=== PATIENT | female | born 1985 | race Two or more races ===

== ENCOUNTER 2024-10-01 23:12 | Emergency (ER) | payer MEDICAID, SELFPAY ==
[2024-10-01 23:14] VITALS: BMI 28.9
[2024-10-02] VITALS (8 sets, daily range): BP systolic 119–151; BP diastolic 79–99; PULSE 83–108; RESP 16–20; TEMP 36.8–37.4; O2SAT 96–100
--- NOTE | 2024-10-02 00:36 | XR_ITS ---
Examination: CT soft tissue neck, with intravenous contrast. 2-D coronal reconstructions. 2-D sagittal reconstructions. Date and time of exam :October 02, 2024, 0329 hours INDICATIONS: Left-sided jaw pain and swelling difficulty swallowing 3 days. CTDI: vol (mGy):10.8 DLP: (mGycm):274 Technique: 1.25 mm axial sections of the neck of the obtained. Coronal and sagittal reconstructions have been obtained. Intravenous contrast administered 60 cc Isovue 370. Low dose protocols were performed. One or more of the following dose reduction techniques were used; automated exposure control, adjustment of the mA and/or KV according to patient size, use of iterative reconstruction technique. Findings: Significant sphenoid sinusitis Enlarged left tonsil with early left tonsillar abscess 13 x 15 mm, swelling encroaching upon the oropharyngeal airway Left molar dental caries with cortical bone destruction at the angle of the mandible on the left Normal epiglottis IMPRESSION: Left tonsillar abscess encroaching upon the oropharyngeal airway Left molar mandibular dental caries with osteomyelitis involving the angle of the left mandible
--- NOTE | 2024-10-02 00:37 | EDRME_ITS ---
Rapid Medical Screening Exam [facility] Arrival date/time: 10/01/24 23:12 38F with history of dental surgery last month presents to ED with several days of throat pain/swelling and yesterday, patient possible has food bolus stuck in throat. Chief Complaint: Dental/Oral/Throat Vital signs: Vital Signs Temperature 99 F 10/02/24 00:26 Pulse Rate 102 H 10/02/24 00:26 Respiratory Rate 19 10/02/24 00:26 Blood Pressure 151/88 H 10/02/24 00:26 Pulse Oximetry (%) 100 10/02/24 00:26 Oxygen Delivery Method Room Air 10/02/24 00:26
[2024-10-02 01:20] LABS: Lactate (Lactic Acid) 0.9 mMol/L (0.4-2.0)
[2024-10-02 01:22] LABS: Basophils # (Auto) 0.1 Thou/mm3 (0.0-0.2); Basophils % (Auto) 1 % (0-2.5); Eosinophils # (Auto) 0.1 Thou/mm3 (0.0-0.5); Eosinophils % (Auto) 0 % (0-10); Hematocrit 37.4 % (36.0-46.0); Hemoglobin 13.1 g/dL (12.0-16.0); Immature Granulocytes % (Auto) 0 % (0-0); Immature Granulocytes Auto 0.04 Thou/mm3 (0.00-0.00); Lymphocytes # (Auto) 1.4 Thou/mm3 (1.0-4.8); Lymphocytes % (Auto) 10 % (10-50); Mean Corpuscular Hemoglobin 27.6 pg (25.0-35.0); Mean Corpuscular Volume 79 fL (80-100); Monocytes # (Auto) 1.1 Thou/mm3 (0.0-0.8); Monocytes % (Auto) 8 % (0-12); Neutrophils # (Auto) 11.2 Thou/mm3 (1.8-7.7); Neutrophils % (Auto) 80 % (37-80); Nucleated Red Blood Cell % 0 /100 WBC (0); Platelet Count 292 Thou/mm3 (140-440); RDW Standard Deviation 39.6 fL (36.4-46.3); Red Blood Count 4.75 Miln/mm3 (4.00-5.20); White Blood Count 13.9 Thou/mm3 (3.6-11.0)
[2024-10-02 01:46] LABS: Alanine Aminotransferase 13 U/L (10-49); Albumin, Serum 4.6 gm/dL (3.5-5.0); Albumin/Globulin Ratio 1.4 (1.2-2.2); Alkaline Phosphatase 64 U/L (46-116); Anion Gap 9 (7-16); Aspartate Amino Transferase 16 U/L (0-34); BUN/Creatinine Ratio 13 Ratio (12-20); Bilirubin,Total 0.7 mg/dL (0.3-1.2); Blood Urea Nitrogen 8 mg/dL (9-23); Calcium 9.1 mg/dL (8.3-10.6); Calcium (Corrected) 9.1 mg/dL (8.5-10.1); Carbon Dioxide 25.5 mMol/L (20.0-31.0); Chloride 104 mMol/L (98-107); Creatinine (Component) 0.6 mg/dL (0.6-1.3); Estimated Creatinine Clearance 113.3 mL/min (>60); Globulin 3.2 gm/dL (2.3-3.5); Glucose 100 mg/dL (74-106); Osmolality,Calculated 273 (275-295); Potassium 3.9 mMol/L (3.4-5.1); Procalcitonin < 0.04 ng/ml (0.0-0.49); Sodium 138 mMol/L (136-145); Total Protein 7.8 gm/dL (5.7-8.2); eGFR > 60 See Note
[2024-10-02 01:47] LABS: HCG,Qualitative Serum Negative
--- NOTE | 2024-10-02 04:20 | PC.NURSE ---
pt c/o pain and swelling of throat since last night she had her left wisdom tooth 4 days ago. She stated that she had hamburger soup and feels that the food is stuck in her throat.
[2024-10-02] MEDS: KETOROLAC INJ 30 MG/ML VIAL IVP (04:22)
[2024-10-02] MEDS: GLUCAGON INJ 1 MG VIAL IVP (04:22)
--- NOTE | 2024-10-02 04:47 | EDNOTE_ITS ---
ED Dental RME/HPI General Chief complaint: Dental/Oral/Throat Stated complaint: Food stuck in throat Time Seen by Provider: 10/02/24 04:32 Arrival date/time: 10/01/24 23:12 RME / HPI RME / HPI Narrative: 10/01/24 23:12 38F with history of dental surgery last month presents to ED with several days of throat pain/swelling and yesterday, patient possible has food bolus stuck in throat. ------ Dr. Olivas?s Main ED Evaluation: 38yo female presents to the ED for a chief complaint of throat pain and swelling. Patient states she had her left lower wisdom tooth pulled out 4 days ago, reporting she started having left facial swelling that night. She states tonight after eating ground beef and soup, she felt like she got food stuck in her throat, reporting she has significant throat pain, so she came in for evaluation. She states it hurts to swallow. She denies any fever, chills or any other associated symptoms. No known allergies. Related Data Allergies Allergy/AdvReac Type Severity Reaction Status Date / Time NKA* Uncoded 09/25/09 12:06 Review of Systems Review of Systems Systems Reviewed: All systems reviewed, normal except as documented Past Medical History Past Medical History CARDIAC: Negative Cardiac Disorders RESPIRATORY: Negative Asthma GENITOURINARY: Negative Renal Disease ENDOCRINE: Negative Diabetes Mellitus Type 2 HEMATOLOGIC: Negative Sickle Cell Disease Social History SMOKING STATUS: Never smoker ED Exam Narrative Physical exam: GENERAL APPEARANCE: alert and oriented x 4, well-developed, well-nourished, no acute distress VITALS: All vitals were reviewed and the pulse ox is 100% on room air, which is normal according to my interpretation. HEENT: Normocephalic, atraumatic; pupils equal, round, reactive to light; EOMI; mucous membranes pink, moist; trismus; L>R submandibular swelling; sublingual swelling, muffled voice; foreign body sensation in throat NECK: Supple LUNGS: CTABL; no wheezes, no rales, no rhonchi; no stridor; no respiratory distress HEART: Regular rate, regular rhythm; normal S1, S2; no murmurs ABDOMEN: non distended; normal BS; soft, no tenderness, no guarding, no rebound; no masses, no organomegaly, no hernia BACK: no CVA tenderness EXTREMITIES: atraumatic; no edema NEUROLOGIC: awake; alert and oriented x4; cranial nerves II-XII grossly intact; no focal sensory or motor deficits PSYCHIATRIC: appropriate mood and affect SKIN: warm, dry, normal color; no rashes Course Course Course Narrative: CXR is ordered to r/o foreign body. Quality Measures none Orders Category Date Time Status Blood glucose [Bedside Blood Glucose] NOW Care 10/02/24 00:[address] Screening NOW Care 10/02/24 00:37 Active Insert IV NOW Care 10/02/24 00:[address] soft tissue neck w con Stat Exams 10/02/24 00:36 Taken XR chest 1V portable Stat Exams 10/02/24 04:51 Taken XR soft tissue neck Stat Exams 10/02/24 04:53 Taken CBC Stat Lab 10/02/24 01:11 Completed CMP [Comprehensive Metabolic Panel] Stat Lab 10/02/24 01:11 Completed HCG,Qualitative Serum Stat Lab 10/02/24 01:11 Completed Lactate (Lactic Acid) Stat Lab 10/02/24 01:11 Completed Procalcitonin Stat Lab 10/02/24 01:11 Completed Clindamycin 900Mg Ivpb [Cleocin/D5w Ivpb] 50 ml Med 10/02/24 04:56 Discontinued IV X1 Dexamethasone Inj [Decadron Inj] Med 10/02/24 05:15 Discontinued 10 mg IVP X1 ONE Glucagon Inj Med 10/02/24 00:36 Discontinued 1 mg IVP X1 ONE Insulin Regular Med 10/02/24 05:10 Discontinued 10 unit IV X1 ONE Ketorolac Inj [Toradol Inj] Med 10/02/24 00:38 Discontinued 30 mg IVP X1 ONE Sodium Chloride 0.9% 1000 ml [Ns] 1,000 ml Med 10/02/24 05:07 Active IV 999 mls/hr Vital Signs Vital signs: Vital Signs Temperature 99 F 10/02/24 00:26 Pulse Rate 102 H 10/02/24 00:26 Respiratory Rate 19 10/02/24 00:26 Blood Pressure 151/88 H 10/02/24 00:26 Pulse Oximetry (%) 100 10/02/24 00:26 Oxygen Delivery Method Room Air 10/02/24 00:26 Dental / Oral MDM Narrative MDM Narrative:: Scribe Attestation: 10/02/24 - I, Ya Alexandru, am scribing for and in the presence of Dr. Olivas. I was not made aware this patient was placed in a room. I saw the patient at 0440. CT soft tissue neck was performed at 0330. Pending to be read. 0501: [facility] does not have ENT services available. 0504: Spoke with [facility]'s transfer center. Awaiting callback at this time. 0551: [facility] was awaiting paperwork to be faxed over to them. Still awaiting callback at this time. Patient data External records reviewed:: [facility] previous records (Per chart review, patient has no previous ED visits or admissions to this facility.) Clinical information provided by:: patient Social determinants that could affect healthcare access:: none Patient has the following chronic illnesses:: none How is presenting disease/condition affected by chronic disease/condition?: no chronic disease Evaluation data The following diagnostics were reviewed and interpreted by me:: lab results and radiology exam(s) Lab and/or radiology exams considered but not ordered:: none Interpretation Summary: WBC count is elevated at 13.9, CMP is normal, Lactic Acid is normal, Procalcitonin is normal, HCG is negative, according to my interpretation. --------- CT scan of the neck with intravenous contrast (axial sections with sagittal and coronal reformats) October 02, 2024 at 0329 hours Clinical History: Food stuck in the throat dental surgery done last month pain and swelling. Comparison: None. Findings: Enlarged heterogenous appearance of the left palatine tonsil. The nasopharynx, hypopharynx, supraglottic and infraglottic larynx, vocal cords and upper trachea are unremarkable. The epiglottis and aryepiglottic folds appear unremarkable. No collection is identified. The vessels of the neck are well opacified. No filling defect is seen. The superficial soft tissues of the neck are unremarkable. Mild lytic changes at the level of the most posterior removed left mandibular molar tooth alveolar process, this is associated with peripheral inflammatory changes. No food bolus detected in the imaged portion of the esophagus. Impression: 1. No food bolus detected in the imaged portion of the esophagus. 2. Enlarged inflamed left palatine tonsil. 3. Mild lytic changes at the level of the most posterior removed left mandibular molar tooth alveolar process associated with peripheral inflammatory changes. This is suspicious for osteomyelitis. Consider correlation with MRI to assess for small abscesses. This report has been electronically signed by: Mack Nelson MD. Medications / Prescriptions Medications or Prescriptions considered but not ordered:: none Medication administrations:: Medication Administration History Discontinued Medications Dexamethasone Sodium Phosphate (Dexamethasone Sod Phos Inj 10 Mg/Ml Vial) 10 mg IVP X1 ONE; Protocol Stop: 10/02/24 05:16 Last Admin: 10/02/24 05:24 Dose: 10 mg Documented By: HUMZA Glucagon (Glucagon Inj 1 Mg Vial) 1 mg IVP X1 ONE Stop: 10/02/24 00:37 Last Admin: 10/02/24 04:22 Dose: 1 mg Documented By: HUMZA Clindamycin Phosphate (Cleocin/D5w Ivpb) 50 mls @ 100 mls/hr IV X1 ONE Stop: 10/02/24 05:25 Last Admin: 10/02/24 05:24 Dose: 100 mls/hr Documented By: HUMZA Sodium Chloride (Ns) 1,000 mls @ 999 mls/hr IV .Q1H1M ONE Stop: 10/02/24 06:07 Last Admin: 10/02/24 05:22 Dose: 999 mls/hr Documented By: HUMZA Insulin Human Regular (Insulin Hum Regular 1 Unit/0.01 Ml (Per Unit)) 10 unit IV X1 ONE Stop: 10/02/24 05:11 Last Admin: 10/02/24 05:27 Dose: Not Given Documented By: CVL Non-Admin Reason: Cancelled by Provider Ketorolac Tromethamine (Ketorolac Inj 30 Mg/Ml Vial) 30 mg IVP X1 ONE Stop: 10/02/24 00:39 Last Admin: 10/02/24 04:22 Dose: 30 mg Documented By: HUMZA see above Consultations Consultation(s) initiated? (list below): Yes Diagnosis Dental Differential Diagnosis: other (jason's angina, deep pharyngeal space infection, trismus, airway compromise, sepsis) Most likely diagnosis given after review of the tests above:: see clinical impression below Admission Indicated Admission indicated?: not indicated Explain why admission is indicated or not indicated:: Patient requires a higher [id number]. Admission Request Was there a request for admission?: No Disposition Plan Disposition Plan: other (specify) (Signed out to Dr. Marshall at 0600 pending transfer.) Critical Care Time Critical Care Time Critical Care Time: Yes Total Critical Care Time (min.): 90 Attestation: The high probability of sudden, clinically significant deterioration in the patient?s condition required the highest level of my preparedness to intervene urgently. The services I provided to this patient were to treat and/or prevent clinically significant deterioration. Services included the following: chart data review, reviewing nursing notes and/or old charts, documentation time, media consultant outside sales collaboration regarding findings and treatment options, medication orders and management, direct patient care, vital sign assessments and ordering, interpreting and reviewing diagnostic studies and lab tests. Aggregate critical care time includes only time during which I was engaged in work directly related to the patient?s care, as described above, whether at bedside or elsewhere in the Emergency Department. It did not include time spent performing other reported procedures or the services of residents, students, nurses or physician assistants. Discharge Plan Prescriptions/Referrals Referrals: No Primary/Family,Physician [Primary Care Provider] - In 1 week Problem List Clinical Impression: Jason angina, Osteomyelitis, Airway compromise, Trismus Patient/Caregiver Discharge Instructions Print Language: Kittitian
--- NOTE | 2024-10-02 04:51 | XR_ITS ---
Examination: AP chest single view TECHNIQUE: AP portable upright chest single view Exam date and time: October 02, 2024 at 0458 hours INDICATIONS: Chest pain today FINDINGS: Normal heart size. Lungs are clear. The osseous structures are intact IMPRESSION: No active disease
--- NOTE | 2024-10-02 04:53 | XR_ITS ---
Examination: AP lateral soft tissue neck 2 views TECHNIQUE: Portable AP lateral soft tissue neck 2 views INDICATIONS: Tonsil mass today sore throat and pain in the tonsillar region FINDINGS: Normal epiglottis No prevertebral soft tissue prominence IMPRESSION: Recommend CT soft tissue neck follow-up to assess for tonsillar enlargement
[2024-10-02] MEDS: SODIUM CHLORIDE 0.9% 1000 ML 1,000 ML 999 ML IV (05:22)
[2024-10-02] MEDS: CLINDAMYCIN 900MG IVPB 50 ML 100 MG IV (05:24)
[2024-10-02] MEDS: DEXAMETHASONE SOD PHOS INJ 10 MG/ML VIAL IVP (05:24)
--- NOTE | 2024-10-02 06:05 | EDNOTE_ITS ---
Emergency Room Addendum Addendum Narrative: 0600: Care assumed from Dr. Olivas, the previous shift emergency physician. Past medical, surgical, social and family history reviewed. Vitals and home medications reviewed. I will assume the care of the patient at this time, pending transfer. Please refer to the emergency department record for history and examination from initial visit.? Physical exam by me shows patient under no acute distress at this time. 0637: Discussed test HPI, PMHx, lab, radiology results and/or management with Dr. Cornejo from [facility]. Dr. Cornejo is requesting images of patient?s neck. 0824: Consulted and made a plan with Dr. oCrnejo, we reviewed the CT images together and do not feel she has an abscess or other definitive surgical interventions needed. States that this and the appearance is normal and seeing quite frequently up to a week after a complex wisdom tooth extraction. Re commends a second dose of Decadron 10 mg six hours from her first dose. Any media dose of unison 3 g, and if after one to two hours after the last dose of Decadron, she is not worsening. She should be appropriate to discharge with Augmentin and to follow up with her dentist. The patient states her dental appointment is on the eighth, in three days. 1255: Patient is now feeling better and she can open her mouth better after steroids' treatment. We informed the patient about the consultation with Dr. Cornejo, see above. Re-assessment at the time of disposition demonstrates that the patient is in no acute distress. We reviewed all the results, analysis, and treatment plans. Patient is amenable to discharge. Strict return precautions were outlined. Patient was discharged in stable condition. Diagnosis: - Status post wisdom tooth extraction CRITICAL CARE: TIME: 35 minutes. The high probability of sudden, clinically significant deterioration in the patient?s condition required the highest level of my preparedness to intervene urgently. The services I provided to this patient were to treat and/or prevent clinically significant deterioration. Services included the following: chart data review, reviewing nursing notes and/or old charts, documentation time, sales enablement consultant collaboration regarding findings and treatment options, medication orders and management, direct patient care, vital sign assessments and ordering, interpreting and reviewing diagnostic studies and lab tests. Aggregate critical care time includes only time during which I was engaged in work directly related to the patient?s care, as described above, whether at bedside or elsewhere in the Emergency Department. It did not include time spent performing other reported procedures or the services of residents, students, nurses or physician assistants.
--- NOTE | 2024-10-02 07:18 | PC.NURSE ---
Report received from pm nurse, patient lying in gurney quietly, no distress noted, patient to er with c/o feeling like food is stuck in her throat. Currenlty patient speaking full sentences, denies pain, skin is warm dry and pink, patient awaiting re evaluation by Dr. Marshall ths am, patient has no other needs at this time, call light is within reach.
--- NOTE | 2024-10-02 08:13 | PC.NURSE ---
Called pharmacy to bring unasyn to the er, not in our pyxis.
[2024-10-02] MEDS: AMPICILLIN/SULBAC INJ 3 GM in SODIUM CHLORIDE 0.9% (Popper) 50 ML IV (08:32)
--- NOTE | 2024-10-02 10:29 | PC.NURSE ---
Patient lying in gurney, no distress noted. Will give medications per MD order at 11am. Patient updated on plan of care. Patient has no other needs at this time; call light within reach.
[2024-10-02] MEDS: DEXAMETHASONE SOD PHOS INJ 10 MG/ML VIAL IV (11:26)
== END 2024-10-02 13:07 | disposition home or self-care (01) ==
PROVIDERS: Physician Assistant; Emergency Provider Emergency Medicine
DX: K12.2 Cellulitis and abscess of mouth (principal); M27.2 Inflammatory conditions of jaws; R25.2 Cramp and spasm; J35.1 Hypertrophy of tonsils
CPT/HCPCS: 36415; 70360; 70491; 71045; 80053; 83605; 84145; 84703; 85025; 96365; 96367; 96375; 96376; 99285; A4649; J0295; J1100; J1610; J1885; J7030; J7050; Q9967; S0077; J0736

== ENCOUNTER 2024-12-26 09:37 | Emergency (ER) | payer MEDICAID, SELFPAY ==
[2024-12-26 10:32] VITALS: BP 120/82; PULSE 101; RESP 18; TEMP 38.2; O2SAT 98; BMI 34.9
--- NOTE | 2024-12-26 10:33 | XR_ITS ---
Examination: CT soft tissue neck, with intravenous contrast. 2-D coronal reconstructions. 2-D sagittal reconstructions. Date and time of exam :December 26, 2024, 12:58 PM Indications: Sore throat fever 3 days. CTDI: vol (mGy):14.2 DLP: (mGycm):Pain in 81 Technique: 1.25 mm axial sections of the neck of the obtained. Coronal and sagittal reconstructions have been obtained. Intravenous contrast administered 60 cc Isovue-370. Low dose protocols were performed. One or more of the following dose reduction techniques were used; automated exposure control, adjustment of the mA and/or KV according to patient size, use of iterative reconstruction technique. Findings: Prominent bilateral soft tissue tonsillar enlargement No discrete fluid-filled abscess is Encroachment upon the oropharyngeal airway Imaging of the epiglottis No prevertebral soft tissue is significant prominence Satisfactory alignment cervical vertebral bodies Impression: Significant bilateral tonsillar inflammation hypertrophy without well-defined abscesses
[2024-12-26 11:15] LABS: Basophils % (Auto) 0 % (0-2.5); Eosinophils % (Auto) 0 % (0-10); Hematocrit 35.1 % (36.0-46.0); Hemoglobin 11.9 g/dL (12.0-16.0); Immature Granulocytes % (Auto) 0 % (0-0); Immature Granulocytes Auto 0.01 Thou/mm3 (0.00-0.00); Lymphocytes # (Auto) 1.1 Thou/mm3 (1.0-4.8); Lymphocytes % (Auto) 12 % (10-50); Mean Corpuscular HGB Conc 33.9 g/dl (31.0-37.0); Mean Corpuscular Volume 80 fL (80-100); Monocytes # (Auto) 0.8 Thou/mm3 (0.0-0.8); Monocytes % (Auto) 9 % (0-12); Neutrophils # (Auto) 6.9 Thou/mm3 (1.8-7.7); Neutrophils % (Auto) 78 % (37-80); Nucleated Red Blood Cell % 0 /100 WBC (0); Platelet Count 197 Thou/mm3 (140-440); RDW Standard Deviation 37.2 fL (36.4-46.3); Red Blood Count 4.41 Miln/mm3 (4.00-5.20); White Blood Count 8.9 Thou/mm3 (3.6-11.0)
[2024-12-26 11:25] VITALS: TEMP 38.2
[2024-12-26] MEDS: ACETAMINOPHEN 500 MG TABLET 1000 MG PO (11:25)
[2024-12-26 11:29] LABS: Alanine Aminotransferase 16 U/L (10-49); Albumin, Serum 4.2 gm/dL (3.5-5.0); Albumin/Globulin Ratio 1.4 (1.2-2.2); Alkaline Phosphatase 53 U/L (46-116); Anion Gap 7 (7-16); Aspartate Amino Transferase 20 U/L (0-34); BUN/Creatinine Ratio 12 Ratio (12-20); Bilirubin,Total 0.4 mg/dL (0.3-1.2); Blood Urea Nitrogen 7 mg/dL (9-23); Calcium 8.7 mg/dL (8.3-10.6); Calcium (Corrected) 8.7 mg/dL (8.5-10.1); Carbon Dioxide 25.5 mMol/L (20.0-31.0); Chloride 107 mMol/L (98-107); Creatinine (Component) 0.6 mg/dL (0.6-1.3); Estimated Creatinine Clearance 123.8 mL/min (>60); Globulin 2.9 gm/dL (2.3-3.5); Glucose 98 mg/dL (74-106); Osmolality,Calculated 275 (275-295); Potassium 3.4 mMol/L (3.4-5.1); Sodium 139 mMol/L (136-145); Total Protein 7.1 gm/dL (5.7-8.2); eGFR > 60 See Note
--- NOTE | 2024-12-26 12:06 | PD.EDURI ---
Upper Respiratory Inf. RME/HPI General Chief Complaint: Flu Like Symptoms Stated Complaint: SORETHROAT, FEVER X 3D Time Seen by Provider: 12/26/24 09:41 Arrival date/time: 12/26/24 09:37 This is a case of 39-year-old female who came into the emergency room due to sore throat for 3 days associated with fever patient denies any cough nasal congestion ear pain denies any drooling of saliva denies any hoarseness of voice denies any pain when swallowing denies shortness of breath Limitations: no limitations Related Data Previous Rx's ?Medication ?Instructions ?Recorded amoxicillin 875 mg-potassium 1 tab PO Q12H #14 tabs 10/02/24 clavulanate 125 mg tablet clindamycin HCl 300 mg capsule 300 mg PO Q6H 10 days #40 caps 12/26/24 ibuprofen 800 mg tablet 800 mg PO Q8H PRN pain #20 tabs 12/26/24 lidocaine HCl 2 % mucosal solution 10 ml PO Q4HR PRN SORETHROAT #100 12/26/24 (Lidocaine Viscous) mL prednisone 20 mg tablet 20 mg PO QDAY 5 days #5 tabs 12/26/24 Allergies Allergy/AdvReac Type Severity Reaction Status Date / Time No Known Allergies Allergy Unverified 12/26/24 09:40 Review of Systems Review of Systems Systems Reviewed: All systems reviewed, normal except as documented Constitutional Constitutional: Reports system reviewed and no additional complaints, except as documented, Reports as per HPI, Denies anorexia, Denies body ache(s), Denies chills, Denies daytime sleepiness, Denies difficulty sleeping, Denies excessive sweating, Denies fatigue, Reports fever(s), Denies frequent falls, Denies headache(s), Denies increased appetite, Denies poor appetite, Denies lethargy, Denies malaise, Denies night sweats, Denies snoring, Denies stops breathing during sleep, Denies weakness, Denies weight gain and Denies weight loss ENT Ears, Nose, Mouth, and Throat: Reports system reviewed and no additional complaints, except as documented, Reports as per HPI, Denies dizziness, Denies dry mouth, Denies dysphagia, Denies ear discharge, Denies otalgia, Denies epistaxis, Denies facial pain, Denies headache(s), Denies hearing loss, Denies hoarseness, Denies lip swelling, Denies mouth lesions, Denies mouth pain, Denies nasal congestion, Denies nasal discharge, Denies nasal obstruction, Denies neck mass, Denies nose pain, Denies odynophagia, Denies post nasal drip, Denies sinus pain, Denies sinus pressure, Reports sore throat, Denies throat swelling, Denies tinnitus, Denies tongue swelling and Denies vertigo Respiratory Respiratory: Reports system reviewed and no additional complaints, except as documented, Reports as per HPI and Denies snoring Gastrointestinal Gastrointestinal: Reports system reviewed and no additional complaints, except as documented, Reports as per HPI, Denies dysphagia and Denies odynophagia Musculoskeletal Musculoskeletal: Reports system reviewed and no additional complaints, except as documented and Reports as per HPI Neurologic Neurologic: Reports system reviewed and no additional complaints, except as documented, Reports as per HPI, Denies dizziness, Denies frequent falls, Denies headache(s), Denies vertigo and Denies weakness Endocrine Endocrine: Denies excessive sweating and Denies fatigue Allergic/Immunologic Allergic/Immunologic: Denies lip swelling, Denies throat swelling and Denies tongue swelling Past Medical History Past Medical History CARDIAC: Negative Cardiac Disorders or Congestive Heart Failure RESPIRATORY: Negative Chronic Obstructive Pulmonary Disease (COPD) or Asthma GENITOURINARY: Negative Renal Disease ENDOCRINE: Negative Diabetes Mellitus Type 1 or Diabetes Mellitus Type 2 HEMATOLOGIC: Negative Sickle Cell Disease Social History SMOKING STATUS: Never smoker ED Exam General Limitations: Present no limitations General appearance: Present alert and in no apparent distress; Absent appears intoxicated or anxious Head Head exam: Present atraumatic, normocephalic and normal inspection Eye Eye exam: Present normal appearance, PERRL and EOMI ENT ENT exam: Present normal exam, normal oropharynx, mucous membranes moist, mucous membranes dry and TM's normal bilaterally Expanded ENT Exam Mouth exam: Present normal external inspection; Absent drooling, trismus, lip swelling, tongue normal, tongue elevation, tongue swelling or laceration Throat exam: Present tonsillar erythema, tonsillomegaly, tonsillar exudate and other (Noted moderate swelling and redness of the both tonsils RED with exudate uvula midline no swelling no redness no lesion no drooling of saliva patient is able to swallow with no pain no neck mass no muffled voice no hot potato voice); Absent R peritonsillar mass, L peritonsillar mass or muffled voice Neck Neck exam: Present normal inspection, full ROM and trachea midline; Absent tenderness, meningismus, lymphadenopathy or thyromegaly Chest Chest inspection: Present normal inspection and symmetric chest wall rise Respiratory Respiratory exam: Present normal lung sounds bilaterally; Absent respiratory distress, wheezes, stridor, accessory muscle use or prolonged expiratory phase Cardiovascular Cardiovascular exam: Present regular rate, normal rhythm and normal heart sounds; Absent bradycardia, tachycardia, irregular rhythm or systolic murmur Abdominal Exam Abdominal exam: Present soft and normal bowel sounds Extremities Exam Extremities exam: Present normal inspection and full ROM Back Exam Back exam: Present normal inspection and full ROM Neurological Exam Neurological exam: Present alert, oriented X3, CN II-XII intact, normal gait and reflexes normal; Absent motor sensory deficit Psychiatric Psychiatric exam: Present normal affect and normal mood Skin Skin exam: Present warm, dry, intact and normal color Course Quality Measures none Orders Category Date Time Status CT Screening NOW Care 12/26/24 10:[address] soft tissue neck w con Stat Exams 12/26/24 10:33 Completed CBC Stat Lab 12/26/24 11:01 Completed CMP [Comprehensive Metabolic Panel] Stat Lab 12/26/24 11:01 Completed Strep A Rapid Stat Lab 12/26/24 10:33 Ordered Acetaminophen Tab [Tylenol ES Tab] Med 12/26/24 10:35 Discontinued 1,000 mg PO X1 ONE Dexamethasone Inj [Decadron Inj] 10 mg Med 12/26/24 15:19 Discontinued Sodium Chloride 0.9% [Ns] 100 ml IV X1 cefTRIAXone/D5w 1gm IV premix [Rocephin/D5w 1gm IV Med 12/26/24 15:19 Active premix] 1 gm in 50 ml IV X1 Vital Signs Vital signs: Vital Signs Temperature 100.7 F H 12/26/24 10:32 Pulse Rate 101 H 12/26/24 10:32 Respiratory Rate 18 12/26/24 10:32 Blood Pressure 120/82 12/26/24 10:32 Pulse Oximetry (%) 98 12/26/24 10:32 Oxygen Delivery Method Room Air 12/26/24 10:32 Patient is febrile at 100.7 patient was given Tylenol fever was rechecked and noted to be 99.5 not tachycardic not tachypneic BP stable not hypoxic oxygen saturation is 98% in room air Upper Respiratory Infection MDM Narrative MDM Narrative:: This is a case of 39-year-old female who came into the emergency room due to sore throat for 3 days associated with fever patient denies any cough nasal congestion ear pain denies any drooling of saliva denies any hoarseness of voice denies any pain when swallowing denies shortness of breath patient is awake alert oriented not in distress nontoxic looking patient is afebrile not tachycardic not tachypneic not hypoxic HEENT exam is normal except pharynx is red tonsils bilateral is swollen red with some exudate uvula is midline no redness no swelling no discharge no drooling of saliva patient can speak full sentences able to swallow with no pain no muffled voice no hot potato voice no peritonsillar abscess no neck mass no Jason's angina [facility] 07/03 patient blood test showed no leukocytosis no anemia kidney and liver function is normal no electrolyte imbalance patient CT scan showed no peritonsillar abscess only tonsils are inflamed at this point patient will be discharged as exudative tonsillitis patient was given a ceftriaxone IM here in the emergency room and dexamethasone and discharged with clindamycin for 10 days prednisone to start tomorrow ibuprofen for pain and lidocaine viscous for sore throat patient will follow-up with PCP in 2 days for reevaluation and for any worsening symptoms or any emergent concerns she will return in the emergency room immediately or call 911 Patient was discharged with comfortable condition walking with stable gait. Patient verbalized no further complains explained diagnosis and answered patient question. Patient is comfortable with the proposed management plan including the need to follow up with his/her primary care physician and any specialist if applicable Discussed patient for any urgent condition or worsening sx, He/She needed to go to emergency room immediately or call 911. Patient acknowledge the responsibility to follow up as instructed and to monitor her/his symptoms. For any persistence of the symptoms for more than 3-5 days return precaution advised. Discussed the result of the test and was given printed discharge instruction Patient data External records reviewed:: [facility] previous records Clinical information provided by:: patient Social determinants that could affect healthcare access:: none Patient has the following chronic illnesses:: None How is presenting disease/condition affected by chronic disease/condition?: no chronic disease Evaluation data The following diagnostics were reviewed and interpreted by me:: lab results and radiology exam(s) Lab and/or radiology exams considered but not ordered:: Reviewed Interpretation Summary: Reviewed Medications / Prescriptions Medications or Prescriptions considered but not ordered:: Given Medication administrations:: Medication Administration History Ceftriaxone Sodium/Dextrose (Rocephin/D5w 1gm Iv Premix) 1 gm in 50 mls @ 100 mls/hr IV X1 ONE Stop: 12/26/24 15:48 Discontinued Medications Acetaminophen (Acetaminophen 500 Mg Tablet) 1,000 mg PO X1 ONE Stop: 12/26/24 10:36 Last Admin: 12/26/24 11:25 Dose: 1,000 mg Documented By: EF Dexamethasone Sodium Phosphate (10 mg/ Sodium Chloride) 101 mls @ 101 mls/hr IV X1 ONE Stop: 12/26/24 15:20 Given Consultations Consultation(s) initiated? (list below): No Diagnosis Upper Respiratory Differential Diagnosis: upper respiratory infection, sinusitis, bronchitis and pharyngitis Most likely diagnosis given after review of the tests above:: Exudative tonsillitis Admission Indicated Admission indicated?: not indicated Explain why admission is indicated or not indicated:: Not indicated Admission Request Was there a request for admission?: No Admission Attestation Admission request attestation: Not indicated Disposition Plan Disposition Plan: Discharge Discharge Attestation Discharge Attestation: The patient and all family members were given an opportunity to ask questions and understood the discharge instructions. Discharge instructions specifically effects, indications for sooner follow up or return to the emergency department, and the expected course of current diagnosis. Patient condition: Stable Discharge Plan Plan Patient Disposition: HOME (Self Care) Patient condition on transfer: Stable Prescriptions/Referrals Prescriptions/Med Rec: New clindamycin HCl 300 mg capsule 300 mg PO Q6H 10 Days Qty: 40 0RF prednisone 20 mg tablet 20 mg PO QDAY 5 Days Qty: 5 0RF Rx Instructions: START TOMORROW ibuprofen 800 mg tablet 800 mg PO Q8H PRN (Reason: pain) Qty: 20 0RF lidocaine HCl [Lidocaine Viscous] 2 % solution 10 ml PO Q4HR PRN (Reason: SORETHROAT) Qty: 100 0RF No Action amoxicillin-pot clavulanate 875-125 mg tablet 1 tab PO Q12H Qty: 14 0RF Referrals: No Primary/Family,Physician [Primary Care Provider] - In 1 week Problem List Clinical Impression: Exudative tonsillitis Patient/Caregiver Discharge Instructions Education Materials: Tonsillitis in Adults Additional Instructions: Follow-up with your primary care physician in 2 days for reevaluation worsening symptoms or any emergent concern unable to eat unable to swallow drooling of saliva return to the emergency room immediately or call 911 increase water intake keep hydrated soft diet warm saline gargle is advised Print Language: Nauruan Stand Alone Forms: [employer] Award Info., Patient Portal Info Letter PA/CONFERENCE DIRECTOR Supervising Physician PA/CONFERENCE DIRECTOR Supervising Physician: DR PERRIN
[2024-12-26 12:25] VITALS: TEMP 37.2
[2024-12-26] MEDS: cefTRIAXone/D5w 1gm IV premix 1 GM/50 ML BAG IV (15:42)
[2024-12-26] MEDS: DEXAMETHASONE SOD PHOS INJ 10 MG/ML VIAL IVP (15:46)
== END 2024-12-26 16:39 | disposition home or self-care (01) ==
PROVIDERS: Nurse Practitioner Family; Emergency Provider Emergency Medicine
DX: J03.90 Acute tonsillitis, unspecified (principal)
CPT/HCPCS: 36415; 70491; 80053; 85025; 87651; 96365; 96375; 99285; A4649; J0696; J1100; Q9967; A9270